=== PATIENT | female | born 1955 | race Caucasian/White ===

== ENCOUNTER 2017-02-13 19:46 | Emergency (ER) | payer MEDICARE, OTHER ==
[2017-02-13 20:08] VITALS: TEMP 98.1
[2017-02-13] MEDS ORDERED: ONDANSETRON 4 MG/2 ML VIAL IVP STA (21:18)
[2017-02-13] MEDS ORDERED: SODIUM CHLORIDE 0.9% 500 ML IV STA (21:18)
[2017-02-13] MEDS ORDERED: DICYCLOMINE 10 MG/ML 2 ML AMP IM STA (21:18)
[2017-02-13] MEDS ORDERED: FAMOTIDINE 20 MG/2 ML VIAL IV STA (21:18)
[2017-02-13] MEDS ORDERED: SODIUM CHLORIDE 0.9% 250 ML IV STA (21:19)
--- NOTE | 2017-02-13 21:20 | ED ---
General Adult HPI - General Chief complaint: Nausea/Vomiting/Diarrhea Stated complaint: Nausea vomiting or diarrhea Time Seen by Provider: 02/13/17 21:00 Source: patient, RN notes reviewed Mode of arrival: ambulatory Limitations: no limitations, altered mental status - History of Present Illness Initial comments: Patient is a pleasant 61-year-old female presenting to the emergency Department with reported nausea vomiting diarrhea. Patient has developed mental delay and is a poor historian. Patient reportedly has had multiple episodes of vomiting. Patient has also had some diarrhea. Patient denies abdominal pain. No reported fevers. Wellness Program Administrator is not present. - Related Data Home Medications Medication Instructions Recorded Confirmed Atorvastatin [Lipitor] 10 mg PO HS 06/20/16 06/20/16 Cranberry Fruit Concentrate 450 mg PO DAILY 06/20/16 06/20/16 [Cranberry] FLUoxetine HCL [PROzac] 20 mg PO DAILY 06/20/16 06/20/16 Levothyroxine Sodium [Tirosint] 25 mcg PO DAILY 06/20/16 06/20/16 Loratadine [Claritin] 10 mg PO DAILY 06/20/16 06/20/16 Melatonin 3 mg PO HS 06/20/16 06/20/16 traZODone HCL [Desyrel] 50 mg PO HS 06/20/16 06/20/16 Previous Rx's Medication Instructions Recorded Sulfamethox-Tmp 800-160Mg [Bactrim 1 tab PO Q12HR 7 Days 06/20/16 DS 800-160 mg] Ondansetron Odt [Zofran Odt] 4 mg PO Q8HR PRN #8 tab 02/13/17 Allergies Allergy/AdvReac Type Severity Reaction Status Date / Time No Known Allergies Allergy Verified 06/20/16 11:21 Review of Systems ROS Statement: Those systems with pertinent positive or pertinent negative responses have been documented in the HPI. ROS Other: All systems not noted in ROS Statement are negative. Constitutional: Denies: fever Eyes: Denies: eye pain ENT: Denies: ear pain Respiratory: Denies: cough, dyspnea Cardiovascular: Denies: chest pain Endocrine: Reports: fatigue Gastrointestinal: Reports: nausea, vomiting, diarrhea. Denies: abdominal pain Genitourinary: Denies: dysuria Musculoskeletal: Denies: back pain Skin: Denies: rash Neurological: Denies: headache Past Medical History Past Medical History: Dementia Additional Past Medical History / Comment(s): DOWNS SYNDROME History of Any Multi-Drug Resistant Organisms: None Reported Past Surgical History: No Surgical Hx Reported Past Psychological History: No Psychological Hx Reported Smoking Status: Never smoker Past Alcohol Use History: None Reported Past Drug Use History: None Reported General Exam Limitations: no limitations General appearance: alert, in no apparent distress Head exam: Present: atraumatic Eye exam: Present: normal appearance ENT exam: Present: mucous membranes dry Neck exam: Present: normal inspection Respiratory exam: Present: normal lung sounds bilaterally Cardiovascular Exam: Present: regular rate, normal rhythm GI/Abdominal exam: Present: soft, normal bowel sounds. Absent: distended, tenderness, guarding, rebound, rigid, pulsatile mass Extremities exam: Present: normal inspection Neurological exam: Present: alert Psychiatric exam: Present: normal affect, normal mood Skin exam: Absent: rash Course Vital Signs 02/13/17 02/13/17 19:59 20:52 Temperature 98.1 F Pulse Rate 83 68 Respiratory 17 16 Rate Blood Pressure 113/53 O2 Sat by Pulse 95 97 Oximetry Medical Decision Making - Medical Decision Making Patient reevaluated and resting comfortably in bed. Patient is tolerating water and crackers. Wellness Program Administrator is now present and has no further concerns. He is updated on results and need for follow-up. - Lab Data Result diagrams: 02/13/17 20:52 02/13/17 20:52 Lab Results 02/13/17 02/13/17 Range/Units 20:52 20:52 WBC 11.4 H (3.8-10.6) k/uL RBC 4.72 (3.80-5.40) m/uL Hgb 14.2 (11.4-16.0) gm/dL Hct 42.3 (34.0-46.0) % MCV 89.7 (80.0-100.0) fL MCH 30.2 (25.0-35.0) pg MCHC 33.6 (31.0-37.0) g/dL RDW 13.6 (11.5-15.5) % Plt Count 266 (150-450) k/uL Neutrophils % 94 % Lymphocytes % 2 % Monocytes % 3 % Eosinophils % 0 % Basophils % 0 % Neutrophils # 10.7 H (1.3-7.7) k/uL Lymphocytes # 0.2 L (1.0-4.8) k/uL Monocytes # 0.3 (0-1.0) k/uL Eosinophils # 0.0 (0-0.7) k/uL Basophils # 0.0 (0-0.2) k/uL Sodium 140 (137-145) mmol/L Potassium 4.6 (3.5-5.1) mmol/L Chloride 100 (98-107) mmol/L Carbon Dioxide 27 (22-30) mmol/L Anion Gap 13 mmol/L BUN 23 H (7-17) mg/dL Creatinine 0.74 (0.52-1.04) mg/dL Est GFR (MDRD) Af Amer >60 (>60 ml/min/1.73 sqM) Est GFR (MDRD) Non-Af >60 (>60 ml/min/1.73 sqM) Glucose 122 H (74-99) mg/dL Calcium 9.0 (8.4-10.2) mg/dL Total Bilirubin 0.9 (0.2-1.3) mg/dL AST 32 (14-36) U/L ALT 42 (9-52) U/L Alkaline Phosphatase 112 (38-126) U/L Total Protein 6.8 (6.3-8.2) g/dL Albumin 3.7 (3.5-5.0) g/dL Amylase 31 (30-110) U/L Lipase 41 (23-300) U/L - Radiology Data Radiology results: image reviewed (Abdominal x-ray shows no acute process) Disposition Clinical Impression: Acute vomiting, Diarrhea Disposition: HOME SELF-CARE Condition: Stable Instructions: Acute Nausea and Vomiting (ED), Acute Diarrhea (ED) Additional Instructions: Please follow-up with Dr. Dhaliwal in the beginning week. Return for not tolerating fluids, pain, fevers, uncontrolled diarrhea, worsening symptoms or other concerns. Prescriptions: Ondansetron Odt [Zofran Odt] 4 mg PO Q8HR PRN #8 tab PRN Reason: Nausea Referrals: Wade Dhaliwal MD [Primary Care Provider] - 1-2 days
[2017-02-13 21:21] VITALS: RESP 16
[2017-02-13 21:31] LABS: Basophils % (A) 0 %; CH 30.4; Eosinophils % (A) 0 %; HCT 42.3 % (34.0-46.0); HDW 2.78; HGB 14.2 gm/dL (11.4-16.0); Luc # (Auto) 0.09; Luc % (Auto) 1; Lymphocytes # (A) 0.2 k/uL (1.0-4.8); Lymphocytes % (A) 2 %; MCH 30.2 pg (25.0-35.0); MCHC 33.6 g/dL (31.0-37.0); MCV 89.7 fL (80.0-100.0); Mean Platelet Volume 6.7; Monocytes # (A) 0.3 k/uL (0-1.0); Monocytes % (A) 3 %; Neutrophils # (A) 10.7 k/uL (1.3-7.7); Neutrophils % (A) 94 %; RBC 4.72 m/uL (3.80-5.40); RDW 13.6 % (11.5-15.5); WBC 11.4 k/uL (3.8-10.6); WBC (Perox) 11.65
[2017-02-13 21:40] LABS: ALT 42 U/L (9-52); AST 32 U/L (14-36); Alkaline Phosphatase 112 U/L (38-126); Amylase 31 U/L (30-110); Anion Gap 13 mmol/L; Blood Urea Nitrogen 23 mg/dL (7-17); Carbon Dioxide 27 mmol/L (22-30); Chloride 100 mmol/L (98-107); Glucose 122 mg/dL (74-99); Non-African American GFR(MDRD) >60 (>60 ml/min/1.73 sqM); Potassium 4.6 mmol/L (3.5-5.1); Sodium 140 mmol/L (137-145); Total Bilirubin 0.9 mg/dL (0.2-1.3); Total Protein 6.8 g/dL (6.3-8.2)
--- NOTE | 2017-02-13 21:49 | XR ---
EXAMINATION TYPE: XR KUB DATE OF EXAM: 02/13/2017 9:30 PM COMPARISON: 03/13/2014 HISTORY: Abdominal pain TECHNIQUE: Single view FINDINGS: Bowel gas pattern is normal. There is no sign of intestinal obstruction or pneumoperitoneum . Fecal pattern is normal. Bony structures are intact. IMPRESSION: Nonacute abdomen. No change.
[2017-02-13] MEDS ORDERED: ONDANSETRON 4 MG ODT STARTER PACK 2 TAB BTL PO STA (22:25)
[2017-02-13 22:47] VITALS: BP 110/59; PULSE 65
== END 2017-02-13 22:47 | disposition home or self-care (01) ==
LOC: EC 19:46 → EEVIPCON 19:46 → EC 22:47
DX: R11.2 Nausea with vomiting, unspecified (principal); R19.7 Diarrhea, unspecified; F03.90 Unspecified dementia, unspecified severity, without behavioral disturbance, psychotic disturbance, mood disturbance, and anxiety; Q90.9 Down syndrome, unspecified; Z79.899 Other long term (current) drug therapy
CPT/HCPCS: 99284; 96374; 96375; 96361; 96372; 36415; 93005; 80053; 82150; 83690; 85025; 74000; J0500; J2405; S0119